=== PATIENT | female | born 1985 | race Two or more races ===

== ENCOUNTER 2025-08-02 15:24 | Emergency (ER) | payer BC ==
[~2025-08-02] VITALS: Ht 165.1 cm; Wt 45.4 kg
[2025-08-02] MEDS ORDERED: PROCHLORPERAZINE EDISYLATE 10 MG/2 ML VIAL ONE (15:59)
[2025-08-02] MEDS: IV NS 0.9% 1,000 ML BAG IV ONE (16:22)
[2025-08-02] MEDS: PROCHLORPERAZINE EDISYLATE 10 MG/2 ML VIAL IVP ONE (16:22)
[2025-08-02 16:36] LABS: PLATELET COUNT (AUTO) 399 K/uL (150-450); RED BLOOD CELL COUNT(AUTO) 3.85 MIL/uL (4.0-5.2); RED CELL DISTRIBUTION WIDTH 12.9 % (11.5-15.0); WHITE BLOOD COUNT (AUTO) 5.4 K/uL (4.3-11.0)
[2025-08-02 16:47] LABS: CALCIUM, SERUM 8.6 mg/dL (8.5-10.1); CREATININE 0.7 mg/dL (0.6-1.3); SODIUM SERUM 136 mmol/L (136-145); UREA NITROGEN, BLOOD 8 mg/dL (7-18)
[2025-08-02 16:51] LABS: ASPARTATE AMINOTRANSFERASE 27 U/L (15-37); TOTAL PROTEIN, SERUM 8.3 g/dL (6.4-8.2)
[2025-08-02 16:54] LABS: ALCOHOL, BLOOD < 3 mg/dL (0-10)
[2025-08-02 16:59] LABS: INR 1.04 (0.91-1.10)
[2025-08-02 17:02] LABS: APPEARANCE,URINE CLEAR (CLEAR); BLOOD, URINE TRACE-INTA Ery/uL (NEGATIVE); LEUKOCYTE ESTERASE ,URINE NEGATIVE (NEGATIVE); NITRITE, URINE NEGATIVE (NEGATIVE); UGLUCOSE NEGATIVE (NEGATIVE)
[2025-08-02 17:06] LABS: SERUM AMMONIA 2 umol/L (11-32)
[2025-08-02 17:37] LABS: BARBITURATE, URINE NEGATIVE (NEGATIVE); BENZODIAZEPINE, URINE NEGATIVE (NEGATIVE); CANNABINOID, URINE NEGATIVE (NEGATIVE); COCCAINE, URINE NEGATIVE (NEGATIVE); OPIATE, URINE NEGATIVE (NEGATIVE)
[2025-08-02 17:40] LABS: AMPHETAMINE, URINE POSITIVE (NEGATIVE)
[2025-08-02 17:59] LABS: ADD URINE CULTURE NO
[2025-08-02 18:34] VITALS: BP 128/87; TEMP 98.5; O2SAT 98
== END 2025-08-02 18:34 | disposition home or self-care (01) ==
LOC: ER 15:50
DX: G43.909 Migraine, unspecified, not intractable, without status migrainosus (principal); R53.1 Weakness; Z79.899 Other long term (current) drug therapy; Z86.2 Personal history of diseases of the blood and blood-forming organs and certain disorders involving the immune mechanism
CPT/HCPCS: 99285; 96374; 96361; 96375; 93005; 71045; 70450; 82140; 85025; 80048; 80076; 81001; 36415; 84484 ×2; 85730; 84702; 80320; 80307; J0780; J1200 ×2; J7030; G0480